=== PATIENT | female | born 1985 | race Two or more races ===

== ENCOUNTER → 2025-03-18 | Outpatient (CLI) | payer MEDICAID, SELFPAY ==
--- NOTE | 2025-03-18 13:02 | XR_ITS ---
Examination: Pelvic ultrasound, transabdominal, complete Technique: Transabdominal ultrasound of the pelvis performed using grayscale imaging Date and time of exam: March 18, 2025 1317 hours INDICATIONS: History left ovarian cystic disease FINDINGS: Uterus 9.4 cm endometrial stripe 1.3 cm No uterine mass or intrauterine gestation Right ovary 4.1 cm arterial flow, 2.7 x 2.5 x 2.0 cm cyst Left ovary 3.2 cm arterial flow IMPRESSION: Simple right ovarian cyst 2.7 x 2.5 x 2.0 cm
--- NOTE | 2025-03-18 13:02 | XR_ITS ---
Examination: Transvaginal ultrasound of the pelvis, complete Technique: Transvaginal sonographic images pelvis performed using carmona scale imaging Exam date and time: March 18, 2025 1331 hours INDICATIONS: History left ovarian cystic disease FINDINGS: Uterus 7.3 cm endometrial stripe 1.2 cm Please see the transvaginal pelvic sonogram report today Right ovary 4.5 cm arterial flow, 28 mm cyst Left ovary 2.5 cm arterial flow IMPRESSION: Please see the transvaginal pelvic sonogram report today.
== END | disposition home or self-care (01) ==
LOC: CDIM 12:48
PROVIDERS: PCP Physician Assistant; Referring Provider Obstetrics & Gynecology; Visit Provider Obstetrics & Gynecology
DX: N83.291 Other ovarian cyst, right side (principal)
CPT/HCPCS: 76830; 76856